=== PATIENT | female | born 1940 | race Caucasian/White ===

== ENCOUNTER → 2020-01-07 | Outpatient (CLI) | payer MEDICARE ==
[~2020-01-07] MED LIST: FLOMAX0.4 MG PO; MULTIVITAMINS1 EAC7 PO; OMEPRAZOLE20 MG PO; Z.0.ATENOLOL25 MG PO; Z.0.EVISTA60 MG PO
--- NOTE | 2020-01-07 14:36 | Diagnostic Imaging Report ---
EXAM: Renal Ultrasound INDICATION: Urinary tract infection COMPARISON: KUB of earlier the same day, CT abdomen and pelvis of 06/27/2011 TECHNIQUE: Transverse and longitudinal images of the kidneys and bladder were obtained. FINDINGS: Right Kidney: Length: 9.7 cm Appearance: Normal echogenicity. Collecting system: No hydronephrosis Stones: Echogenic focus at the right midpole measures 3 mm and may represent a nonobstructing calculus. Cyst/Mass: None Left Kidney: Length: 9.4 cm Appearance: Normal echogenicity. Collecting system: No hydronephrosis Stones: None Cyst/Mass: None Bladder: No mass or calculi. Bilateral ureteral jets visualized. Prevoid volume estimate of 86 cc. Postvoid images demonstrate bladder volume estimate of 18 cc. IMPRESSION: No hydronephrosis. Nonobstructing 3 mm right midpole renal calculus. Signed by: Anaya Morales MD on 01/07/2020 2:33 PM
--- NOTE | 2020-01-07 14:37 | Diagnostic Imaging Report ---
Exam: KUB - 2 views Indication: Flank pain, hematuria, urinary tract infection Comparison: CT abdomen and pelvis of 06/27/2011, renal ultrasound of earlier the same day Findings: No radiographically apparent renal calculi. Nonobstructive bowel gas pattern. No free air. 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 No acute osseous injury. Phleboliths in the pelvis. Impression: The nonobstructive 3 mm calculus seen on the ultrasound of the same day is not appreciable by KUB. Dextroconvex scoliosis and degenerative changes of the lumbar spine. Signed by: Anaya Morales MD on 01/07/2020 2:33 PM
== END ==
LOC: US 12:20
PROVIDERS: ATTEND Urology
DX: N39.0 Urinary tract infection, site not specified (principal)
CPT/HCPCS: 74018; 76770; 76857

== ENCOUNTER 2020-01-27 11:51 | Emergency (ER) | payer MEDICARE ==
[~2020-01-27] VITALS: Ht 165.1 cm; Wt 64.2 kg
--- OUTSIDE RECORDS SUMMARY | 2020-01-27 11:55 | XMS REPORT | Continuity of Care Document ---
Author Author Lacie Whitaker [email or web address] Organization [employer] Address Unknown Phone Unavailable Care Team Providers Care Lead Electrician Name Role Phone [employer] Unavailable Un available Problems Problem Status Onset Date Classification Date Reported Comments Source S83.241A - "OTH TEAR OF MEDIAL MENISCUS, Active 01/11/2016 [facility] 368.2 - DIPLOPIA Active 04/03/2014 [facility] DYSPNEA Active [facility] DYSPNEA, UNSPECIFIED Active [facility] VERTIGO Active [facility] Medications No Data Provided for This Section Allergies, Adverse Reactions, Alerts No Known Medication Allergies Immunizations No Data Provided for This Section Results No Data Provided for This Section Pathology Reports No Data Provided for This Section Diagnostic Reports Report Value Date Source Chest 2 views DX PA and latera l chest: There is mild calcification in the aortic arch. The cardiomediastinal silhouette, pulmonary vasculature and jerry are otherwise within normal limits. The lungs and pleural spaces are clear. There are no significant osseous abnormalities. Calcified bilateral breast prostheses are noted. There is no significant change compared to 03/26/2013. IMPRESSION: No acute radiographic abnormalities in the chest. [id number] 07/03/2016 [facility] Knee wo contrast MRI CLINICAL HISTORY: S83.241A Other tear of medial meniscus, current injury, right knee, initial encounter, S83.281A Other tear of lateral meniscus, current injury, right knee, initial encounter AGE: 75 years GENDER: Female TECHNIQUE: Multiplanar, multisequence MRI of the right knee was performed without gadolinium based contrast. COMPARISON: 06/06/2013 FINDINGS: There is no evidence of fracture or malalignment. There is moderate bone marrow edema in the posterior, lateral femoral condyle and posterior lateral tibial plateau. Mild early osteophyte formation is seen in the lateral tibiofemoral compartment. There is a trace knee joint effusion. The patellofemoral articular cartilage demonstrates shallow articular surface fissuring in the medial patellar facet (image 18, series 2). Focal near full-thickness chondral fissures also seen in the superior, lateral patellar facet with underlying mild reactive marrow change. The medial tibiofemoral articular cartilage demonstrates grade 2 chondral thinning The lateral tibiofemoral articular cartilage demonstrates extensive grade 4 chondral loss in the posterior lateral tibiofemoral compartment. There is underlying moderate bone marrow edema at this site. The anterior cruciate ligament and posterior cruciate ligament are intact. The medial collateral ligament and lateral collateral ligament complex are unremarkable. The medial meniscus intact without evidence of tear. There is moderate free edge blunting of the lateral meniscus, greatest in the body suggesting interval partial resection. There is residual medial T2 signal in the body of the lateral meniscus. This is nonspecific and can be seen in the setting of meniscal tear or scarring from previous surgery. No discrete fluid signal seen to conclusively suggest re-tear. The visualized musculature about the knee is unremarkable. The extensor mechanism is within normal limits. IMPRESSION: Progressive, extensive grade 4 chondral loss in the posterior lateral tibiofemoral compartment with underlying moderate bone marrow edema. Postoperative changes from previous partial lateral meniscectomy. Intermediate T2 signal seen in the residual meniscus without discrete fluid signal to suggest re-tear. Mild chondromalacia in the patellofemoral compartment which is not significantly changed. Trace knee joint effusion. 01/19/2016 MÓNICA Holguin Consultation Notes No Data Provided for This Section Discharge Summaries No Data Provided for This Section History and Physicals No Data Provided for This Section Vital Signs No Data Provided for This Section Encounters Location Location Details Encounter Type Encounter Number Reason For Visit Attending Provider ADM Date DC Date Status Source [facility] Outpatient Imaging - Epi [facility] Services [id number] Rosalio Hall 01/19/2016 01/20/2016 MÓNICA Holguin [facility] Outpatient [id number] Chet Jovel 07/03/2016 07/04/2016 [facility] Procedures No Data Provided for This Section Assessment and Plan No Data Provided for This Section Plan of Care No Data Provided for This Section Social History Social History Date Source No data available for this section 07/04/2016 [facility] No data available for this section 01/20/2016 MÓNICA Holguin Family History No Data Provided for This Section Advance Directives No Data Provided for This Section Functional Status No Data Provided for This Section
--- OUTSIDE RECORDS SUMMARY | 2020-01-27 11:55 | XMS REPORT ---
Author Author [facility] t Organization [facility] Address [facility] [place] [address] Phone Unavailable Care Team Providers Care Systems Support Engineer Name Role Phone MD YENNI VU PCP JAVIER PRESTON Attphys Unavailable Majo Puente MD Attphys RICHELLE DANIELLE M.D. Attphys Unavailable CHRIS RIZZO M.D. Attphys Unavailable Chet Jovel Attphys Lynnette Hall Attphys Chet Jovel Admphys Payers Payer Name Policy Type Policy Number Effective Date Expiration Date S [facility]IC[facility] PPO/PFFS/ERS [id number] xxxxxxxxx 2017 00:00:00 [facility] Advance Directives Directive Decision Effective Date Termination Date Comments Sour ce Yes N/A [facility] Problems Condition Name Condition Details Condition Category Status Onset Date Resolution Date Last Treatment Date Treating Clinician Comments Source Herpes zoster Problem [facility] History of hypertension History of hypertension Problem HL7.CCDAR2 Res olved [facility] Vertigo Vertigo Problem HL7.CCDAR2 Active [facility] 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 Lo calized primary osteoarthritis of right lower leg Problem HL7.CCDAR2 Active [facility] Limb pain Limb pain Problem HL7.CCDAR2 Active [facility] Sensorineural hearing loss Sensorineural hearing loss Problem HL7.C CDAR2 Active [facility] Throat disorder Throat disorder Problem HL7.CCDAR2 Active [facility] Postnasal drip Postnasal drip Problem HL7.CCDAR2 Active [facility] Nasal congestion Nasal congestion Problem HL7.CCDAR2 Active [facility] Allergies, Adverse Reactions, Alerts Allergy Name Allergy Type Status Severity Reaction(s) Onset Date Inacti ve Date Treating Clinician Comments Source iodine Allergy to substance Active 2020-01-22 00:00:00 [facility] Erythromycin base Allergy to substance Active 2020-01-22 00 :00:00 [facility] Family History Family Member Diagnosis Comments Start Date Stop Date Source Unknown Family Member Family history of cardiac disorder Family Histo ry [facility] Social History Social Habit Start Date Stop Date Quantity Comments Source Sex Assigned At [place] Smoking Status Start Date Stop Date Source Never smoker [facility] Medications Ordered Medication Name Filled Medication Name Start Date Stop Da te Current Medication? Ordering Clinician Indication Dosage Frequency Signature (SIG) Comments Components Source Atenolol 25 MG Oral Tablet Atenolol 25 MG Oral Tablet 2015-06-03 00:0 0:00 Yes DIDI SEPULVEDA M.D. 1 QD TAKE 1 TABLET DAILY. [facility] Atenolol Atenolol Yes 25 [facility] Multivitamin (Multivitamins) 1 Each CAPSULE Multivitam in (Multivitamins) 1 Each CAPSULE Yes 1 [facility] Omeprazole Omeprazole Yes 20 [facility] Raloxifene Hcl (Evista) 60 Mg TABLET Raloxifene Hcl (Evista) 60 Mg TABLET Yes 60 [facility] Tamsulosin Hcl (Flomax*) 0.4 Mg CAP Tamsulosin Hcl (Flomax*) 0.4 Mg C AP Yes .4 [facility] Pravastatin Sodium TABS Pravastatin Sodium TABS Yes [facility] Doxycycline Hyclate TABS Doxycycline Hyclate TABS Yes [facility] Vital Signs Vital Name Observation Time Observation Value Comments Source Weight 2020-01-22 14:57:00 149 [lb_av] [facility] BMI (Body Mass Index) 2020-01-22 14:57:00 24.0 kg/m2 [facility] BP Systolic 2018-05-28 08:52:00 151 mm[Hg] [facility] BP Diastolic 2018-05-28 08:52:00 90 mm[Hg] [facility] Height 2018-05-28 08:52:00 66 [in_us] [facility] Weight 2018-05-28 08:52:00 145.5 [lb_av] [facility] Body Mass Index Calculated 2018-05-28 08:52:00 23.48 kg/m2 [facility] Heart Rate 2018-05-28 08:52:00 60 /min [facility] Procedures Procedure Date / Time Performed Performing Clinician [facility] e Ultrasound examination of pelvis, limited or follow-up 2019-12-11 9 00:00:00 [facility] Ultrasound, renal 2020-01-07 00:00:00 [facility] History of Nose Surgery [facility] History of Knee surgery [facility] History of Eye Surgery [facility] Plan of Care Planned Activity Planned Date Details Comments Source Future Scheduled Test 2020-04-10 00:00:00 INFLUENZA VACCINE [code = INFLUENZA VACCINE] [facility] Future Scheduled Test 2004 00:00:00 65+ PNEUMOCOCCAL V ACCINE (1 of 2 - PCV13) [code = 65+ PNEUMOCOCCAL VACCINE (1 of 2 - PCV13)] [facility] Future Scheduled Test 1989 00:00:00 SHINGLES VACCINES (#1) [code = SHINGLES VACCINES (#1)] [facility] Goal Patient referral [code = 6330992 ] [facility] Instructions Shingles [facility] Encounters Start Date/Time End Date/Time Encounter Type Admission Type Attendi [facility] Facility Care Department Encounter ID Source 2020-01-22 14:49:00 2020-01-22 15:51:00 Departed Emergency Room [facility] [id number] [facility] dical [place] 2020-01-07 12:20:00 2020-01-07 12:20:00 Registered Clinic 3 JAVIER OROURKE [facility] [id number] [facility] 2018-05-28 08:30:00 2018-05-28 08:30:00 Appointment; RICHELLE DANIELLE M.D. BYRD, MICHAEL, M.D. [facility] Otorhinolaryngology [facility] [id number] [facility] 2016-08-30 13:00:00 2016-08-30 13:00:00 Appointment; CHRIS RIZZO M.D. HUANG, EDDIE, M.D. [facility] UTP [id number] [facility] 2016-07-03 14:28:00 2016-07-03 23:59:00 Outpatient Allison Jovel v [facility] [id number] [facility] 2016-06-30 11:00:00 2016-06-30 11:00:00 Appointment; CHRIS RZIZO M.D. HUANG, EDDIE, M.D. [facility] UTP [id number] [facility] 2016-01-19 11:00:00 2016-01-19 23:59:00 Outpatient Rosalio Hall [facility] [id number] [facility] Results Test Description Test Time Test Comments Results Result Comments Source US RENAL RETROPERITONEAL COMP 2020-01-07 14:31:00 [facility] [address] [address] Patient Name: JUNE GILMORE MR #: [id number] : 1940 Age/Sex: 79/F Req #: [id number] Adm Physician: Ordered by: JAVIER PRESTON MD Report #: [id number] Location: Room/Bed: Procedure: [id number] US/US RENAL RETROPERITONEAL COMP Exam Date: 01/07/20 Exam Time: 1250 REPORT STATUS: Signed EXAM: Renal Ultrasound INDICATION: Urinary tract infection COMPARISON: KUB of earlier the same day, CT abdomen and pelvis of 06/27/2011 TECHNIQUE: Transverse and longitudinal images of the kidneys and bladder were obtained. FINDINGS: Right Kidney: Length: 9.7 cm Appearance: Normal echogenicity. Collecting system: No hydronephrosis Stones: Echogenic focus at the right midpole measures 3 mm and may represent a nonobstructing calculus. Cyst/Mass: None Left Kidney: Length: 9.4 cm Appearance: Normal echogenicity. Collecting system: No hydronephrosis Stones: None Cyst/Mass: None Bladder: No mass or calculi. Bilateral ureteral jets visualized. Prevoid volume estimate of 86 cc. Postvoid images demonstrate bladder volume estimate of 18 cc. IMPRESSION: No hydronephrosis. Nonobstructing 3 mm right midpole renal calculus. Signed by: Tori Cardenas MD on 01/07/2020 2:33 PM Dictated By: TORI CARDENAS MD 1433 Transcribed By: JUDITH on 01/07/20 1433 COPY TO: JAVIER PRESTON MD PELVIC (NON OB) DAMIAN OR F/U 2020-01-07 14:31:[address] [address] Patient Name: JUNE GILMORE MR #: [id number] : 1940 Age/Sex: 79/F Req #: [id number] Adm Physician: Ordered by: JAVIER PRESTON MD Report #: [id number] Location: US Room/Bed: Procedure: [id number] US/US PELVIC (NON OB) DAMIAN OR F/U Exam Date: 01/07/20 Exam Time: 1250 REPORT STATUS: Signed EXAM: Renal Ultrasound INDICATION: Urinary tract infection COMPARISON: KUB of earlier the same day, CT abdomen and pelvis of 06/27/2011 TECHNIQUE: Transverse and longitudinal images of the kidneys and bladder were obtained. FINDINGS: Right Kidney: Length: 9.7 cm Appearance: Normal echogenicity. Collecting system: No hydronephrosis Stones: Echogenic focus at the right midpole measures 3 mm and may represent a nonobstructing calculus. Cyst/Mass: None Left Kidney: Length: 9.4 cm Appearance: Normal echogenicity. Collecting system: No hydronephrosis Stones: None Cyst/Mass: None Bladder: No mass or calculi. Bilateral ureteral jets visualized. Prevoid volume estimate of 86 cc. Postvoid images demonstrate bladder volume estimate of 18 cc. IMPRESSION: No hydronephrosis. Nonobstructing 3 mm right midpole renal calculus. Signed by: Tori Cardenas MD on 01/07/2020 2:33 PM Dictated By: TORI CARDENAS MD 1433 Transcribed By: JUDITH on 01/07/20 1433 COPY TO: JAVIER PRESTON MD ABDOMEN-1VIEW (KUB) 2020-01-07 14:29:00 [address] [address] Patient Name: JUNE GILMORE MR #: [id number] : 1940 Age/Sex: 79/F Req #: [id number] Adm Physician: Ordered by: JAVIER PRESTON MD Report #: [id number] Location: Room/Bed: Procedure: [id number] DX/ABDOMEN-1VIEW (KUB) Exam Date: 01/07/20 Exam Time: 1300 REPORT STATUS: Signed Exam: KUB - 2 views Indication: Flank pain, hematuria, urinary tract infection Comparison: CT abdomen and pelvis of 06/27/2011, renal ultrasound of earlier the same day Findings: No radiographically apparent renal calculi. Nonobstructive bowel gas pattern. No free air. 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 No acute osseous injury. Phleboliths in the pelvis. Impression: The nonobstructive 3 mm calculus seen on the ultrasound of the same day is not appreciable by KUB. Dextroconvex scoliosis and degenerative changes of the lumbar spine. Signed by: Tori Cardenas MD on 01/07/2020 2:33 PM Dictated By: TORI CARDENAS MD 1433 Transcribed By: JUDITH on 01/07/20 1433 COPY TO: JAVIER PRESTON MD SCR MAMM BILATERAL ANGELES CAD DIGITAL W/AUGMENTATION 2019-04-15 16 :17:25 - SCR MAMM BILATERAL ANGELES CAD DIGITAL W/AUGMENTATIONBILATERAL DIGITAL SCREENING MAMMOGRAM 3D/2D WITH CAD WITH AUGMENTATION: 04/14/2019CLINICAL: Asymptomatic. Digital breast tomosynthesis was performed in addition to routine CC and MLO views. Current mammographic images were evaluated by either a [employer] M-Vu or a [employer] ImageChecker CAD (computer aided detection system). Comparison is made to exams dated 03/22/2018 mammogram, 02/20/2017 mammogram, 02/15/2016 mammogram, 01/18/2015 mammogram, 01/13/2014 mammogram, and 01/09/2013 mammogram - [facility]-. There are scattered fibroglandular tissues in both breasts. There are benign vascular calcifications in the right breast. Bilateral prepectoral silicone breast implants with capsular calcifications are mammographically stable.No suspicious mass, architectural distortion, malignant type calcification, or lymph node abnormality detected. Breast architecture is stable compared to prior exams.IMPRESSION: BENIGNThere is no mammographic evid ence of malignancy. Resume annual screening mammography in one year. Martha quesada/:04/15/2019 16:17:25 Cold Strip Feeder: [place] BRAVO, [facility]-FWletter sent: BIRADS 1-2 Normal Mammogram BI-RADS: 2 Benign
--- OUTSIDE RECORDS SUMMARY | 2020-01-27 11:55 | XMS REPORT | Clinical Summary ---
Author Author [facility] Organization [place] [facility] Address Unknown Phone Unavailable Care Team Providers Care Documentation Supervisor Name Role Phone Asked, No Pcp PCP Unavailable Allergies Not on File Medications Not on file Active Problems Not on file Encounters Care Team Description Date Type Specialty Austin Puente MD Low back pain, unspecified back pain lat erality, unspecified chronicity, unspecified whether sciatica present (Primary Dx); Radiculopathy, lumbar region; Pain in right leg 08/18/2019 Transcribe Physical Therapy Orders after 01/26/2019 Social History Date Tobacco Use Types Packs/Day Years Used Never Assessed Sex Assigned at Date Recorded Not on file Industry Job Start Date Occupation Not on file Not on file Not on file Travel End Travel History Travel Start No recent travel history available. Last Filed Vital Signs Not on file Plan of Treatment Health Maintenance Due Date Last Done Comments SHINGLES VACCINES (#1) 1989 65+ PNEUMOCOCCAL VACCINE 2004 (1 of 2 - PCV13) INFLUENZA VACCINE 04/10/2020 Results Not on fileafter 01/26/2019 Insurance Type Payer Benefit Subscriber ID Effective Phone Address Plan / Dates Group PPO HUMANA MEDICARE HUMANA xxxxxxxxx 2017-P MEDICARE resent PPO/PFFS/E 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
[2020-01-27] MEDS ORDERED: GABAPENTIN100 MG PO (12:52)
[2020-01-27] MEDS ORDERED: TYLENOL WITH C1 EACH PO (12:54)
[2020-01-27 13:01] VITALS: BP 116/51
--- NOTE | 2020-01-27 13:02 | Emergency Department Note ---
History of Present Illnes History of Present Illness Chief Complaint: Skin Rash or Abscess History of Present Illness This is a 79 year old female brought in for persistent, uncontrolled pain due to Shingles that was diagnosed @ 2 weeks ago. Pt was visiting out of town when the rash first occurred, and they took her to a local clinic for evaluation of pain in the same area where the rash occurred. She was not prescribed anything at that time, because there was not Zoster,yet. Pt states that she broke out in the rash the day after she was seen in the clinic. Pt was not re-evaluated again, until last week, when she returned home and then had a telemedicine visit with her PCP, who prescribed some Valtrex and a Prednisone. He apparently told the patient that it didn't matter if she took these meds, or not, since there was such a delay in starting them,so she didn't take them! Pt was seen at [facility] on 01/23/2020 for this pain, and prescribed a Medrol Dosepak and some Naproxen. She is taking the Medrol, but not the Naproxen, because they "read that it may not be good to take if you have had diverticulitis. She received Tylenol #3 and Tramadol, from one of these visits and has been taking the Tylenol #3, with some relief of her pain, with some constipation. 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 Onset (how long ago): week(s) (2) Location: immediately under the right breast and radiating around to the right back Quality: sharp, stabbing, burning Radiation: back (right side) Severity: moderate Onset quality: sudden Duration (how long): week(s) (2) Timing of current episode: constant Progression: unchanged Chronicity: new Context: recent illness, recent surgery, recent travel, new medications Relieving factors: medication (Tylenol #3, offers temporary relief) Exacerbating factors: movement Associated symptoms: denies other symptoms Treatments prior to arrival: other (see HPI) Previous service: medications given Past Medical/Family History Physician Review I have reviewed the patient's past medical and family history. Any updates have been documented here. Past Medical History Recent Fever: No Clinical Suspicion of Infectio: No New/Unexplained Change in Ment: No Past Medical History: Hypertension, Cancer (skin), UTI's, Hyperlipedemia Other Medical History: diverticulitis skin cancer on nose kidney problems urinary problems Past Surgical History: T&A, Knee Replacement Other Surgery: breast implants right eye surgery nose skin cancer removed Social History Smoking Cessation: Never Smoker Counseling Performed: No Alcohol Use: None Any Illegal Drug Use: No TB Exposure/Symptoms: No Physically hurt or threatened: No Family History Family history of heart diseas: Yes Other Last Tetanus: UTD Any Pre-Existing Lines (PICC,: No Is patient up to date on immun: Yes Last Flu: UTD Last Pneumovax: UTD Review of Systems Review of Systems Constitutional: no symptoms EENTM: no symptoms Cardiovascular: no symptoms Respiratory: no symptoms Gastrointestinal: no symptoms Musculoskeletal: no symptoms Neurological: no symptoms Psychological: no symptoms Hematological/Lymphatic: no symptoms Review of other systems Pt with pain at site of Herpes Zoster on T6 - T10 dermatomes, involving right lower chest, upper abdomen and back All other systems reviewed and negative. Physical Exam Related Data Allergies: Coded Allergies: erythromycin base (Verified Allergy, Unknown, 01/22/20) iodine (Verified Allergy, Unknown, 01/22/20) Triage Vital Signs Vital Signs Date Time Temp Pulse Resp B/P (MAP) Pulse Ox O2 Delivery O2 Flow Rate FiO2 01/27/20 11:56 97.6 67 18 111/62 97 Vital signs reviewed: Yes Physical Exam CONSTITUTIONAL Constitutional: well-developed, well-nourished HENT HENT L/R: left TM normal, right TM normal, left canal normal, right canal normal, left ext ear normal, right ext ear normal, left impacted cerumen, right impacted cerumen, left bulging TM, right bulging TM EYES Eyes: PERRL, conjunctivae normal NECK Neck: ROM normal PULMONARY Pulmonary: effort normal, breath sounds normal CARDIOVASCULAR Cardiovascular: regular rhythm, heart sounds normal, capillary refill normal, normal rate GASTROINTESTINAL GENITOURINARY Genitourinary: exam deferred SKIN Skin: rash (dry, crusted, dark red colored Herpes Zoster lesions on T6 - T10 dermatomes. affecting the skin below the right breast and upper abdomen, radiating around to the right side of the back (continuous dermatomes.)) MUSCULOSKELETAL NEUROLOGICAL Neurological: alert, oriented x 3, no gross motor or sensory deficits PSYCHOLOGICAL Psychological: mood/affect normal, judgement normal Critical Care Time Subsequent provider I assumed direction of critical care for this patient from another provider of my specialty. Assessment & Plan Assessment & Plan Final Impression: (1) Neuropathic pain (2) Shingles (3) Hyperlipidemia (4) Hypertension Assessment & Plan - Pt to stop taking the Tramadol, since it "makes her feel funny." - She may continue Tylenol #3, taking care not to become constipated by increasing fluid and fiber intake, and possibly daily Miralax. She states that she tolerates one tablet at a time of the Tylenol #3, and achieves some temporary relief. This will be taken prn, for breakthrough pain not controlled by the Gabapentin - Adding Gabapentin 100 mg po bid to help with the neuropathic pain. - Pt to f/u with PCP, Dr. Herrera, to further titrate the Gabapentin. She will do this today or tomorrow. - Explained that some patient's go on to have chronic pain at the site of the Shingles, and we hope that this will not be the case. PT encouraged to take deep breaths frequently each hour, to try and avoid pneumonia. Since the Shingles is on the right chest wall and is very painful, she is not breathing as deeply as usual. - Pt and daughter voiced understanding of the plan. Depart Disposition: HOME, SELF-CARE Last Vital Signs Date Time Temp Pulse Resp B/P (MAP) Pulse Ox O2 Delivery O2 Flow Rate FiO2 01/27/20 11:56 97.6 67 18 111/62 97 Home Meds Active Scripts Acetaminophen With Codeine (TYLENOL WITH CODEINE #3 TABLET) 1 Each Tablet, 1 TAB PO Q6H for pain due to shingles, #30 TAB 0 Refills DO NOT take and drive or operate machinery. Prov:NIKKO SINGLETARY MD 01/27/20 Gabapentin (GABAPENTIN) 100 Mg Capsule, 1 TAB PO BID for for shingles pain, #60 CAP 0 Refills Prov:NIKKO SINGLETARY MD 01/27/20 Reported Medications Pravastatin Sodium (PRAVASTATIN SODIUM) 20 Mg Tablet, DAILY 01/27/20 Prednisone (PREDNISONE) 20 Mg Tab, 20 MG PO DAILY, #30 TAB 5/19/20 Mirabegron (MYRBETRIQ) 50 Mg Tab.er.24h, DAILY 01/27/20 Tramadol Hcl (ULTRAM) 50 Mg Tablet, 50 MG PO BID PRN for Mild Pain (1-3) or Fever>100.8, TAB 01/27/20 Aspirin (ASPIRIN) 81 Mg Tab.chew, DAILY 01/27/20 Tamsulosin Hcl* (FLOMAX*) 0.4 Mg Cap, 0.4 MG PO DAILY, #30 CAP 05/22/16 Omeprazole (OMEPRAZOLE) 20 Mg Capsule.dr, 20 MG PO DAILY 06/17/13 Multivitamin (MULTIVITAMINS) 1 Each Capsule, 1 EA PO 04/02/13 Atenolol (Atenolol) 25 Mg Tablet, 25 MG PO QPM 06/27/11 Discontinued Reported Medications Raloxifene Hcl (Evista) 60 Mg Tablet, 60 MG PO DAILY 06/27/11 Medications in the ED None NIKKO SINGLETARY MD January 27, 2020 13:02
[2020-01-27] MEDS ORDERED: PREDNISONE20 MG PO (13:55)
[2020-01-27] MEDS ORDERED: ASPIRIN81 MG (13:55)
[2020-01-27] MEDS ORDERED: PRAVASTATIN SOD20 MG (13:55)
[2020-01-27] MEDS ORDERED: MYRBETRIQ50 MG (13:55)
[2020-01-27] MEDS ORDERED: ULTRAM50 MG PO (13:55)
== END 2020-01-27 13:15 | disposition home or self-care (01) ==
LOC: FSED 11:51
DX: B02.29 Other postherpetic nervous system involvement (principal); I10 Essential (primary) hypertension; E78.5 Hyperlipidemia, unspecified; Z85.828 Personal history of other malignant neoplasm of skin
CPT/HCPCS: 99282

== ENCOUNTER → 2020-02-03 | Outpatient (CLI) | payer MEDICARE ==
[~2020-02-03] MED LIST changes: +ASPIRIN81 MG; +GABAPENTIN100 MG PO; +MYRBETRIQ50 MG; +PRAVASTATIN SOD20 MG; +PREDNISONE20 MG PO; +TYLENOL WITH C1 EACH PO; +ULTRAM50 MG PO
--- NOTE | 2020-02-03 11:59 | Diagnostic Imaging Report ---
CT of the abdomen and pelvis. Comparison: CT abdomen 06/27/2011, x-rays abdomen 01/07/2020 Clinical History: Follow-up of kidney stones Technique: Helical CT scan of the abdomen and pelvis was performed. Intravenous contrast administration was not utilized. Oral contrast administration was not utilized. Coronal and sagittal reconstructions were generated from the raw data. Multiple images were submitted for interpretation. 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 The bladder is incompletely distended. There is presence of multiple pelvic calcific densities suggestive of phleboliths and atherosclerotic calcification of arteries. This interferes with the sensitivity of this exam to detect ureteric calculi. Inferior chest: A small 5 mm nodule in the right lung base which is unchanged. Small areas of discoid atelectasis in both lung bases. Coronary artery calcification. Liver: There is presence of a 13 mm ovoid hypodensity in the dome of the liver. This is unchanged compared with the previous exam. There is another hypodensity immediately to the right of this density which is new. There is another hypodensity in the liver in segment 6 that measures approximately 11 mm in diameter. This is also new. These could represent liver cysts. There is concern, contrast-enhanced CT preferably multiple phases is suggested for further evaluation. Spleen: Unremarkable. Pancreas: Unremarkable Biliary tree and gallbladder: Unremarkable Adrenal glands: Unremarkable Kidneys and ureters: There are no calcific densities situated in the region of the kidneys. There is presence of exophytic small renal cysts on the left side which are too small to characterize. There is presence of an inferior polar cortical renal cyst that measures approximately 18.5 mm and is of water density. There is no definite evidence of ureteric calculi given the limitations of this exam and the anatomic abnormality of the patient. The bladder is incompletely distended. There is no definite urinary bladder calculus seen either. There is no hydronephrosis or hydroureter. Vasculature: Focal atherosclerotic calcification of aorta and its major branches. Lymph nodes: No lymphadenopathy. Bowel: Unremarkable except for diverticular disease of colon. Pelvis: Pelvic genitals unremarkable. Pelvic wall unremarkable. Peritoneum: Unremarkable Perineal compartments: unremarkable. Fluid: No free fluid Bones: kyphoscoliosis with degenerative changes of the thoracolumbar spine. No aggressive bony lesions visualized. Body wall: Unremarkable. The patient has known bilateral saline breast implants. Impression: No renal calculi. No definite ureteric calculi. This is given the limitation of the exam. Bilateral renal cysts as described above. Hypoattenuating areas in the liver 2 of which are new. They appeared to be liver cysts. There is a concern, contrast-enhanced CT of the liver can be performed as described above. Signed by: Fredy Mckeon MD on 02/03/2020 11:56 AM
== END ==
LOC: CT 10:25
PROVIDERS: ATTEND Urology
DX: N20.0 Calculus of kidney (principal)
CPT/HCPCS: 74176

== ENCOUNTER → 2020-07-06 | Day surgery (SDC) | payer MEDICARE, OTHER ==
[2020-07-01 15:11] LABS: BASOPHILS % 0.5 % (0.0-1.0); EOSINOPHILS # (AUTO) 0.2 (0.0-0.4); EOSINOPHILS % 3.2 % (0.0-6.0); HEMATOCRIT 42.4 % (34.2-44.1); HEMOGLOBIN 13.4 g/dL (12.0-16.0); LYMPHOCYTES # (AUTO) 1.8 (1.0-3.2); LYMPHOCYTES % 31.3 % (18.0-39.1); MEAN CORPUSCULAR HEMOGLOBIN 31.4 pg (28-32); MEAN CORPUSCULAR HGB CONC 31.6 g/dL (31-35); MEAN CORPUSCULAR VOLUME 99.3 fL (81-99); MONOCYTES # (AUTO) 0.7 (0.2-0.8); MONOCYTES % 11.4 % (4.4-11.3); NEUTROPHILS % 53.4 % (38.7-80.0); PLATELET COUNT 189 x10e3/uL (140-360); RED BLOOD COUNT 4.27 x10e6/uL (3.6-5.1); RED CELL DISTRIBUTION WIDTH 12.9 % (11.7-14.4)
[~2020-07-06] MED LIST changes: +CO Q-10 100 MG1 EACH PO; +FENTANYL CITRATE/PF 100MCG/2 ML INJ ONE; +GABAPENTIN300 MG PO; +GLUCAGON FOR INJ 1 MG VIAL ONE; +HYOSCYAMINE 0.125 MG TAB ONE; +LIDOCAINE HCL 2% LOCAL INJ 5 ML SDV VIAL INJ ONE; +PROPOFOL IV EMULSION 10 MG/ML 20 ML VIAL ONE; +VIT D3 PO
[2020-07-06 12:45] VITALS: BP 128/53
== END | disposition home or self-care (01) ==
LOC: OR 09:52
PROVIDERS: ATTEND Internal Medicine Gastroenterology
DX: K29.70 Gastritis, unspecified, without bleeding (principal); Z86.010 Personal history of colon polyps; K25.9 Gastric ulcer, unspecified as acute or chronic, without hemorrhage or perforation; K20.90 Esophagitis, unspecified without bleeding; K44.9 Diaphragmatic hernia without obstruction or gangrene; K22.8 Other specified diseases of esophagus; K57.30 Diverticulosis of large intestine without perforation or abscess without bleeding; K64.8 Other hemorrhoids; I10 Essential (primary) hypertension; E78.5 Hyperlipidemia, unspecified; Z88.1 Allergy status to other antibiotic agents; Z91.041 Radiographic dye allergy status; Z91.048 Other nonmedicinal substance allergy status; Z01.810 Encounter for preprocedural cardiovascular examination; Z01.812 Encounter for preprocedural laboratory examination; Z11.59 Encounter for screening for other viral diseases; Z79.82 Long term (current) use of aspirin; Z86.19 Personal history of other infectious and parasitic diseases
CPT/HCPCS: 36415; 43239; 45378; 85025; 93005; J1610; J2001; J2704; J3010; U0002